=== PATIENT | male | born 1995 | race Caucasian/White ===

== ENCOUNTER 2021-01-24 17:19 | Emergency (ER) | payer MEDICAID ==
[~2021-01-24] VITALS: Ht 170.2 cm; Wt 73.0 kg
[2021-01-24 17:35] VITALS: BP 139/82
== END 2021-01-24 18:42 | disposition left against medical advice (07) ==
LOC: ER 17:19
DX: R45.1 Restlessness and agitation (principal)
CPT/HCPCS: 99283